=== PATIENT | female | born 1970 | race Caucasian/White ===

== ENCOUNTER 2021-09-21 00:18 | Emergency (ER) | payer OTHER, SELFPAY ==
[2021-09-21 00:22] VITALS: BP 145/77; PULSE 88; RESP 18; TEMP 36.2; O2SAT 100
[2021-09-21 00:38] VITALS: BP 137/93; PULSE 84; RESP 15; O2SAT 99
[2021-09-21] MEDS: ASPIRIN 81 MG CHEWABLE TABLET 324 MG PO (00:50)
[2021-09-21] MEDS: NITROGLYCERIN SL 0.4 MG TABLET SUBLINGUAL (00:52)
--- NOTE | 2021-09-21 00:52 | PC.NURSE ---
1 nitro 0.4 mg tablet given. pt denies chest pain at this time.
[2021-09-21 01:12] LABS: Basophils Absolute Auto 0.1 K/mm3 (0.0-0.1); Basophils Percent Auto 0.6 % (0.2-1.2); Eosinophils Absolute Auto 0.1 K/mm3 (0-0.3); Eosinophils Percent Auto 1.4 % (0-4.4); Hematocrit 38.5 % (37.0-47.0); Hemoglobin 13.1 g/dL (12.0-15.0); Immature Granulocyte Absolute 0.03 K/mm3 (0.00-0.031); Immature Granulocyte Percent A 0.3 % (0-0.5); Lymphocytes Absolute Auto 2.46 K/mm3 (0.9-3.2); Lymphocytes Percent Auto 26.5 % (18.3-44.2); Mean Corpuscular Hemoglobin 31.7 pg (26-34); Mean Corpuscular Volume 93.2 fl (80-100); Mean Platelet Volume 9.1 fl (7.4-10.4); Monocytes Percent Auto 10.5 % (2.6-8.5); Neutrophils Absolute Auto 5.6 K/mm3 (1.3-6.7); Neutrophils Percent Auto 60.7 % (45.5-73.1); Platelet Count Result 301 k/mm3 (150-375); Red Blood Count 4.13 M/mm3 (4.2-5.4); Red Cell Distribution Width 11.9 % (11.5-14.5); White Blood Count 9.3 K/mm3 (4.5-10.0)
[2021-09-21 01:15] LABS: Add Urine Microscopic? NO; Appearance Urine Clear (Clear); Bilirubin Urine Negative (Negative); Blood Urine Negative (Negative); Color Urine Straw (Yellow); Glucose Urine UA Negative (Negative); Ketones Urine Negative (Negative); Leukocyte Esterase Ur Negative LEU/UL (Negative); Nitrate Urine Negative (Negative); Protein Urine Negative (Negative); Specific Grav Ur 1.009 (1.001-1.035); Urobilinogen Urine Negative mg/dL (<2.0)
--- NOTE | 2021-09-21 01:17 | ED.GENADULT ---
HPI - General Adult General Chief complaint: Neuro Symptoms/Deficit Stated complaint: Facial numbness, chest fullness Time Seen by Provider: 09/21/21 00:36 History of Present Illness HPI narrative: Patient is a 51-year-old female that presents the emergency department with chief complaint of chest fullness. The patient reports that she has been having some discomfort in her chest that started today patient also reports she felt dizzy patient also has had some tingling around her lips on both sides. Patient denies a focal motor deficit denies any changes in speech. Patient denies focal neurological deficit. Related Data Home Medications Medication Instructions Recorded Confirmed levothyroxine [Euthyrox] 09/21/21 Allergies Allergy/AdvReac Type Severity Reaction Status Date / Time latex AdvReac Rash Verified 09/21/21 00:43 Review of Systems Review of Systems: A 10 system review of systems was completed on the patient and is negative except for what is stated in the HPI. Nursing and ancillary documentation was reviewed. Exam Narrative: GENERAL: Well-appearing, well-nourished, and in no acute distress. HEAD: Normocephalic, atraumatic. EYES: PERRLA and EOMI. ENT: Nares clear, no rhinorrhea or epistaxis. Mucous membranes moist. NECK: Supple. CHEST: Clear to auscultation. No respiratory distress. HEART: Regular rate and rhythm. No murmur heard. Normal peripheral pulses. ABDOMEN: Soft, nontender, nondistended, normal active bowel sounds. EXTREMITIES: Normal range of motion. No edema. SKIN: Warm, dry, no rash. NEURO: No focal deficits. Alert and oriented x3. PSYCH: Normal mood and affect. Course Vital Signs Vital signs: Vital Signs Temperature 36.2 C L 09/21/21 00:22 Pulse Rate 88 09/21/21 00:22 Respiratory Rate 18 09/21/21 00:22 Blood Pressure 145/77 H 09/21/21 00:22 Pulse Oximetry 100 09/21/21 00:22 Temperature 36.2 C L 09/21/21 00:22 Pulse Rate 81 09/21/21 04:00 Respiratory Rate 18 09/21/21 04:00 Blood Pressure 129/87 09/21/21 04:00 Pulse Oximetry 98 09/21/21 04:00 Medical Decision Making Vital Signs Vital Signs: Vital Signs Temperature 36.2 C L 09/21/21 00:22 Pulse Rate 88 09/21/21 00:22 Respiratory Rate 18 09/21/21 00:22 Blood Pressure 145/77 H 09/21/21 00:22 Pulse Oximetry 100 09/21/21 00:22 Temperature 36.2 C L 09/21/21 00:22 Pulse Rate 81 09/21/21 04:00 Respiratory Rate 18 09/21/21 04:00 Blood Pressure 129/87 09/21/21 04:00 Pulse Oximetry 98 09/21/21 04:00 Lab Data Result diagrams: 09/21/21 00:58 09/21/21 00:57 Labs: Lab Results 09/21/21 09/21/21 09/21/21 Range/Units 00:57 00:57 00:58 WBC (4.5-10.0) K/mm3 RBC (4.2-5.4) M/mm3 Hgb (12.0-15.0) g/dL Hct (37.0-47.0) % MCV (80-100) fl MCH (26-34) pg MCHC (32-36) g/dl RDW (11.5-14.5) % Plt Count (150-375) k/mm3 MPV (7.4-10.4) fl Immature Gran % (Auto) (0-0.5) % Neut % (Auto) (45.5-73.1) % Lymph % (Auto) (18.3-44.2) % [place] % (Auto) (2.6-8.5) % Eos % (Auto) (0-4.4) % Baso % (Auto) (0.2-1.2) % Lymph # (Auto) (0.9-3.2) K/mm3 [place] # (Auto) (0.1-0.6) K/mm3 Eos # (Auto) (0-0.3) K/mm3 Baso # (Auto) (0.0-0.1) K/mm3 Abs Immat Gran (auto) (0.00-0.031) K/mm3 Absolute Neuts (auto) (1.3-6.7) K/mm3 Absolute Nucleated RBC (0.0-0.012) K/mm3 Nucleated RBC % (0.0-0.2) % PT 12.3 (11.1-14.7) Seconds INR 0.9 APTT 33.1 (22.3-36.8) SECONDS Sodium 137 (137-145) mmol/L Potassium 4.1 (3.4-5.0) mmol/L Chloride 103 (98-107) mmol/L Carbon Dioxide 28 (22-30) mmol/L Anion Gap 6 L (8-16) mmol/L BUN 14 (7-17) mg/dL Creatinine 0.70 (0.7-1.0) mg/dL Estim Creat Clear Calc 117 ml/min Estimated GFR > 60 (59 - ) Glucose 112 H (65-110) mg/dL Lactic Acid (0.7-2.1) mmol/L Calcium
[2021-09-21 01:26] LABS: Lactic Acid Reflex 0.8 mmol/L (0.7-2.1)
[2021-09-21 01:26] LABS: Alanine Aminotransferase 25 U/L (4-35); Albumin Level 4.1 g/dL (3.5-5.1); Alkaline Phosphatase 97 U/L (38-126); Anion Gap 6 mmol/L (8-16); Aspartate Amino Transferase 29 U/L (14-36); Bilirubin,Total 0.3 mg/dL (0.2-1.3); Blood Urea Nitrogen 14 mg/dL (7-17); Calcium 9.1 mg/dL (8.4-10.2); Carbon Dioxide 28 mmol/L (22-30); Chloride 103 mmol/L (98-107); Estimated CRCL calculation 117 ml/min; Estimated Glomerular Filt Rate > 60; Glucose 112 mg/dL (65-110); Lipase 100 U/L (23-300); Potassium 4.1 mmol/L (3.4-5.0); Sodium 137 mmol/L (137-145)
[2021-09-21 01:27] LABS: INR 0.9; Prothrombin Time 12.3 Seconds (11.1-14.7)
[2021-09-21 01:29] LABS: Partial Thromboplastin Time 33.1 SECONDS (22.3-36.8)
[2021-09-21 01:38] LABS: NT Pro B Type Natriuretic Pept 69 pg/mL (5-100); Troponin I < 0.012 ng/mL (0.000-0.034)
[2021-09-21 03:11] VITALS: BP 117/74; PULSE 77; RESP 15; O2SAT 98
[2021-09-21] MEDS: ACETAMINOPHEN 500 MG TABLET 1000 MG PO (03:22)
[2021-09-21 04:00] VITALS: BP 129/87; PULSE 81; RESP 18; O2SAT 98
[2021-09-21 04:24] LABS: Troponin I < 0.012 ng/mL (0.000-0.034)
[2021-09-21 05:20] VITALS: BP 130/84; PULSE 75; RESP 18; O2SAT 96
== END 2021-09-21 05:08 | disposition home or self-care (01) ==
PROVIDERS: Emergency Provider Emergency Medicine
DX: R07.89 Other chest pain (principal)
CPT/HCPCS: 36415; 80053; 81003; 83605; 83690; 83735; 83880; 84484; 85025; 85610; 85730; 99284; A9270

== ENCOUNTER 2022-10-31 12:50 | Emergency (ER) | payer OTHER, SELFPAY ==
--- NOTE | ~2022-10-31 | XR_ITS ---
XR hand LT min 3V DATE: 10/31/2022 14:09 INDICATION: Dog bite. Bony tenderness at third metacarpal TECHNIQUE: 3 views COMPARISON: None FINDINGS: No radiopaque soft tissue foreign body, subcutaneous emphysema, fracture or dislocation, pe riosteal reaction or bone destruction is detected. Joint spaces are preserved. No erosive changes or chondrocalcinosis. IMPRESSION: No significant abnormality Reviewed, dictated and finalized at location B. PT WRITER IMPRESSION: No significant abnormality
[2022-10-31 12:55] VITALS: BP 146/76; PULSE 90; RESP 16; TEMP 36.1; O2SAT 99
--- NOTE | 2022-10-31 13:53 | ED.ANIMALBIT ---
HPI - Animal Bite General Chief Complaint: Animal Bite Stated Complaint: dog bite Time Seen by Provider: 10/31/22 13:43 History of Present Illness HPI narrative: 52-year-old [id number] female here for evaluation of left hand pain after a dog bite. Patient states that she was breaking up a dog fight between her dog and another dog who are both fully vaccinated against rabies. Patient states that she went home and irrigated the hand and poured an antiseptic solution on it. Presents to the emergency department because there is an area of swelling and pain to her hand underneath where the dog bit. Her last tetanus shot was last year. No fevers, chills, decreased range of motion in the hand. Related Data Home Medications Medication Instructions Recorded Confirmed levothyroxine 88 mcg tablet 09/21/21 (Euthyrox) Allergies Allergy/AdvReac Type Severity Reaction Status Date / Time latex AdvReac Rash Verified 10/31/22 12:50 Review of Systems Review of Systems: Gen.: Denies fevers or chills Eyes: Denies eye pain or visual change ENT: Denies congestion Respiratory: Denies shortness of breath or cough CV: Denies chest pain or palpitations GI: Denies abdominal pain nausea, emesis or diarrhea denies burning, urgency, frequency or hematuria Musculoskeletal: Reports left hand pain. Denies back pain or muscle pain Neuro: Denies numbness, tingling, weakness or focal weakness Skin: Denies rash Except as documented, all other systems reviewed and negative Exam Narrative: Gen: Alert, oriented, no acute distress Eyes: EOMI, no icterus Pulm: Respirations even and unlabored, symmetric thorax expansion, no audible stridor or visible cyanosis CV: Regular rate per telemetry GI: No distension, no voluntary/involuntary guarding Neuro: AOx4, moves all extremities without apparent difficulty or weakness, follows commands Skin: Patient has 5-10 scattered abrasions over the dorsum of her left hand and wrist with no active bleeding. She has a punctate lesion on the dorsal aspect of her wrist that has no active bleeding. Psych: Normal mood/affect, insight/judgement good, adequate fund of knowledge, recent/remote memory intact Course Vital Signs Vital signs: Vital Signs Temperature 97.0 F L 10/31/22 12:55 Pulse Rate 90 10/31/22 12:55 Respiratory Rate 16 10/31/22 12:55 Blood Pressure 146/76 H 10/31/22 12:55 Pulse Oximetry 99 10/31/22 12:55 Oxygen Delivery Room Air 10/31/22 12:55 Temperature 97.0 F L 10/31/22 12:55 Pulse Rate 90 10/31/22 12:55 Respiratory Rate 16 10/31/22 12:55 Blood Pressure 146/76 H 10/31/22 12:55 Pulse Oximetry 99 10/31/22 12:55 Oxygen Delivery Room Air 10/31/22 12:55 MDM - Animal Bite MDM Narrative Medical decision making narrative: 52-year-old female here for evaluation of a dog bite to her hand and wrist sustained by a dog that is fully vaccinated against rabies earlier today. The wounds were irrigated, there is no lesion that will require closure as they are all superficial and not actively bleeding. Hand x-ray without bony abnormality. Her tetanus is up-to-date. She will be discharged home with a course of antibiotics, we discussed return precautions and she voiced understanding. Discharge Plan Discharge Clinical Impression: Bite by animal Patient Disposition: Home, Self-Care Condition: Stable Instructions: Antibiotic Form, Animal Bite (ED) Additional Instructions: The x-ray does not show any fracture. Please keep the wounds open and exposed to air. Take the antibiotics as directed. Return to the emergency department if you cannot move the hand, if you develop a fever, you notice redness streaking up your arm. Prescriptions: New amoxicillin-pot clavulanate 875-125 mg tablet 1 tablet PO Q12H Qty: 10 0RF No Action levothyroxine [Euthyrox] 88 mcg tablet Follow-up/Referrals: PHYSICIAN NOT ON STAFF,NONSTAFF [Pr
== END 2022-10-31 15:39 | disposition home or self-care (01) ==
PROVIDERS: Emergency Provider Physician Assistant; PCP Physician Assistant
DX: S61.452A Open bite of left hand, initial encounter (principal); W54.0XXA Bitten by dog, initial encounter
CPT/HCPCS: 73130; 99283

== ENCOUNTER 2023-04-14 21:01 | Emergency (ER) | payer OTHER, SELFPAY ==
--- NOTE | ~2023-04-14 | CT_ITS ---
EXAMINATION: CTA chest abdomen pelvis DATE: 04/14/2023 22:05 INDICATION: Sudden crushing chest pain and epigastric pain radiating to the back TECHNIQUE: Computed tomographic angiography (CTA) of the chest, abdomen, and pelvis was performed 100 mL Omnipaque-350 intravenous contrast. Automated exposure control and iterative reconstruction techn ique were employed. The dose-length product was 1950.9 mGy-cm. COMPARISON: None FINDINGS: Chest: Mild discoid atelectasis in the apical left upper lobe. No pneumonia, pulmonary edema, pleural effusi on or pneumothorax. Although not performed as a dedicated pulmonary embolism protocol CT there is exc ellent contrast opacification of the pulmonary arteries and no significant motion artifact which yiel ds a diagnostic quality study demonstrating no pulmonary embolism. Heart size is normal. No pericardi al effusion. Thoracic aorta is normal in caliber with no aneurysm or dissection. No pathologically en larged abdominal or pelvic lymphadenopathy. Mild to moderate thoracic spondylosis. Abdomen and pelvis: Liver, spleen, pancreas, bilateral adrenal glands and kidneys are normal. Calcified gallstone at the neck of the normal-appearing gallbladder with no wall thickening or pericholecystic inflammation pres enting to suggest acute cholecystitis. No intra or extra hepatic biliary duct dilation. Normal append ix. There are few sigmoid diverticula without adjacent inflammation presenting to suggest diverticuli tis. Small bowel is normal. Bladder is normal. IUD in expected position within the anteverted uterus. 2.4 cm left adnexal cyst. No free intraperitoneal gas or fluid. No pathologically enlarged abdominal or pelvic lymphadenopathy. Normal caliber abdominal aorta with no aneurysm or dissection. No evident atherosclerotic disease along the aorta or its major branches. Very small fat-containing umbilical h ernia. Mild lumbar levocurvature with moderate spondylosis. IMPRESSION: 1. No aortic aneurysm, dissection or other acute intrathoracic, abdominal or pelvic process. 2. Cholelithiasis. Reviewed, dictated and finalized at location A. IMPRESSION: 1. No aortic aneurysm, dissection or other acute intrathoracic, abdominal or pe lvic process. 2. Cholelithiasis.
--- NOTE | ~2023-04-14 | XR_ITS ---
EXAMINATION: XR chest 2V DATE: 04/14/2023 22:25 INDICATION: Chest pain, nausea and vomiting TECHNIQUE: PA and lateral views of the chest were obtained. COMPARISON: None FINDINGS: The lungs are clear with no focal airspace opacities, pulmonary edema, pleural effusion or pneumothor ax. The cardiomediastinal silhouette is normal. Mild to moderate thoracic spondylosis. IMPRESSION: 1. No acute cardiopulmonary disease. Reviewed, dictated and finalized at location A.
--- NOTE | 2023-04-14 21:02 | ECG_ITS ---
Measurements Intervals [place] Rate: 60 P: 59 MO: 163 QRS: 64 QRSD: 92 T: 58 QT: 404 QTc: 405 Interpretive Statements SINUS RHYTHM WITH SINUS ARRHYTHMIA BASELINE ARTIFACT- I, II, III, AVR, AVF, V3, V5-V6 NORMAL ECG NO PREVIOUS ECG AVAILABLE FOR COMPARISON Electronically Signed On 04-15-2023 6:41:59 CDT by Fredy Murphy D.O.
[2023-04-14 21:04] VITALS: BP 154/119; PULSE 70; RESP 25; O2SAT 95
--- NOTE | 2023-04-14 21:14 | ED.CHESTPAIN ---
HPI - Chest Pain General Chief Complaint: Chest Pain <DEBBIE Aleaxnder Last Filed: 04/15/23 02:09> Stated Complaint: cp <DEBBIE Alexander Last Filed: 04/15/23 02:09> Time Seen by Provider: 04/14/23 21:14 <DEBBIE Alexander Last Filed: 04/15/23 02:09> Source: patient <DEBBIE Alexander Last Filed: 04/15/23 02:09> Mode of arrival: ambulatory <DEBBIE Alexander Filed: 04/15/23 02:09> Limitations: no limitations <DEBBIE Alexander Last Filed: 04/15/23 02:09> History of Present Illness HPI narrative: Patient is a 52 y/o female who presents to the ED with c/o CP. Patient reports she developed pain in her chest and epigastric region around 6 PM tonight. She was at [employer] and bought a bottle of Pepto-Bismol. She took 2 doses of this and reported improvement of pain. Pain returned around 8:30 PM and was more severe and constant. She describes the pain as a crushing pain in her chest and epigastric region, radiating through to her back. She feels short of breath due to the pain. She began vomiting upon arrival to the ED and reports feeling nauseous currently. Denies ever having pain like this before. Denies history of cardiac issues or gallbladder disease. Denies fevers. Denies recent diarrhea or constipation. Denies urinary symptoms. <DEBBIE Alexander Last Filed: 04/15/23 02:09> Related Data Home Medications: Home Medications Medication Instructions Recorded Confirmed levothyroxine 88 mcg tablet 09/21/21 (Euthyrox) <DEBBIE Alexander Last Filed: 04/15/23 02:09> Allergies/Adverse Reactions: Allergies Allergy/AdvReac Type Severity Reaction Status Date / Time latex AdvReac Rash Verified 04/14/23 21:23 <DEBBIE Alexander Last Filed: 04/15/23 02:09> Review of Systems Review of Systems: CONSTITUTIONAL: Denies fever, chills, or sweats. CARDIOVASCULAR: See HPI. RESPIRATORY: See HPI. GASTROINTESTINAL: See HPI. GENITOURINARY: Denies dysuria or hematuria. SKIN: Denies rash or itching. MUSCULOSKELETAL: See HPI. <Cammie Martinez PA-C - Last Filed: 04/15/23 02:09> All systems reviewed & are unremarkable except as noted in HPI and below <Cammie Martinez PA-C - Last Filed: 04/15/23 02:09> [facility] Past Medical History Medical History: Medical History Anxiety Asthma Hypothyroid <Camime Martinez PA-C - Last Filed: 04/15/23 02:09> Surgical History Surgical History: Surgical History No pertinent past surgical history <Cammie Martinez PA-C - Last Filed: 04/15/23 02:09> Social History Social History: Social History (Updated 04/15/23 @ 01:20 by Cammie Martinez PA-C) Smoking status: Never smoker <Cammie Martinez PA-C - Last Filed: 04/15/23 02:09> Exam Narrative: GENERAL: Uncomfortable appearing, diaphoretic, moderate acute distress due to pain, morbidly obese with BMI of 42.6. HEAD: Normocephalic, atraumatic. NECK: Supple. No adenopathy, no masses. RESPIRATORY: Airway patent, respirations nonlabored. Clear to auscultation bilaterally, no rales, rhonchi, wheezing. No focal lung findings. CARDIOVASCULAR: Regular rate and rhythm without murmurs, rubs, or gallops. Peripheral pulses 2+ and equal bilaterally. ABDOMINAL: Soft, focal tenderness in epigastric region, nondistended, no hepatosplenomegaly. Normoactive BS. MUSCULOSKELETAL: Moves all extremities. Strength/ROM intact without gross deformities. TTP along anterior chest wall. No edema. No calf tenderness. SKIN: Warm, diaphoretic. No rashes. NEURO: A&O X3. Speech clear. Cranial nerves II-XII grossly intact. Steady gait. No ataxic movements. PSYCHIATRIC: Appropriate mood and affect. Normal interaction. <Cammie Martinez,
[2023-04-14 21:25] LABS: Basophils Absolute Auto 0.1 K/mm3 (0.0-0.1); Basophils Percent Auto 0.7 % (0.2-1.2); Eosinophils Absolute Auto 0.1 K/mm3 (0-0.3); Eosinophils Percent Auto 1.1 % (0-4.4); Hematocrit 40.8 % (37.0-47.0); Hemoglobin 13.6 g/dL (12.0-15.0); Immature Granulocyte Absolute 0.03 K/mm3 (0.00-0.031); Immature Granulocyte Percent A 0.2 % (0-0.5); Lymphocytes Absolute Auto 3.68 K/mm3 (0.9-3.2); Lymphocytes Percent Auto 30.5 % (18.3-44.2); Mean Corpuscular HGB Conc 33.3 g/dl (32-36); Mean Corpuscular Hemoglobin 30.6 pg (26-34); Mean Corpuscular Volume 91.7 fl (80-100); Monocytes Absolute Auto 1.2 K/mm3 (0.1-0.6); Monocytes Percent Auto 10.2 % (2.6-8.5); Neutrophils Absolute Auto 6.9 K/mm3 (1.3-6.7); Neutrophils Percent Auto 57.3 % (45.5-73.1); Platelet Count Result 397 k/mm3 (150-375); Red Blood Count 4.45 M/mm3 (4.2-5.4); Red Cell Distribution Width 12.4 % (11.5-14.5); White Blood Count 12.1 K/mm3 (4.5-10.0)
[2023-04-14] MEDS: ONDANSETRON INJ 4 MG/2 ML VIAL IV PUSH (21:43)
[2023-04-14] MEDS: SODIUM CHLORIDE 0.9% IV 1,000 ML 999 ML IV CONT (21:43)
[2023-04-14] MEDS: HYDROmorphone HCL INJ (*CRX) 1 MG/ML SYR IV PUSH (21:44)
[2023-04-14 21:47] LABS: Alanine Aminotransferase 32 U/L (6-35); Albumin Level 4.5 g/dL (3.5-5.1); Alkaline Phosphatase 140 U/L (38-126); Anion Gap 8 mmol/L (8-16); Aspartate Amino Transferase 48 U/L (14-36); Bilirubin,Total 0.3 mg/dL (0.2-1.3); Blood Urea Nitrogen 13 mg/dL (7-17); Calcium 8.9 mg/dL (8.4-10.2); Carbon Dioxide 27 mmol/L (22-30); Chloride 104 mmol/L (98-107); Estimated CRCL calculation 103 ml/min; Estimated Glomerular Filt Rate > 60; Glucose 121 mg/dL (65-110); Lipase 145 U/L (23-300); Potassium 3.8 mmol/L (3.4-5.0); Sodium 139 mmol/L (137-145)
[2023-04-14 21:52] LABS: Lactic Acid Reflex 1.6 mmol/L (0.7-2.0)
[2023-04-14 21:59] LABS: Troponin I < 0.012 ng/mL (0.000-0.034)
[2023-04-14 22:02] LABS: INR 0.9; Prothrombin Time 12.5 Seconds (11.1-14.7)
[2023-04-14 22:03] LABS: Partial Thromboplastin Time 28.7 SECONDS (22.3-36.8)
[2023-04-14 22:08] VITALS: BP 136/83; BP 149/72; PULSE 72; PULSE 80; RESP 17; RESP 22; O2SAT 100; O2SAT 96
[2023-04-15 00:48] LABS: Troponin I < 0.012 ng/mL (0.000-0.034)
[2023-04-15 01:14] VITALS: PULSE 63; RESP 15; O2SAT 96
== END 2023-04-15 02:18 | disposition home or self-care (01) ==
PROVIDERS: Emergency Medicine; Emergency Provider Physician Assistant
DX: K80.70 Calculus of gallbladder and bile duct without cholecystitis without obstruction (principal); E03.9 Hypothyroidism, unspecified; J45.909 Unspecified asthma, uncomplicated
CPT/HCPCS: 36415; 71046; 71275; 74174; 80053; 83605; 83690; 84484; 85025; 85610; 85730; 93005; 96361; 96374; 96375; 99284; J1170; J2405; J7030; Q9967